=== PATIENT | male | born 1985 | race Two or more races ===

== ENCOUNTER 2018-04-21 13:44 | Emergency (ER) | payer SELFPAY ==
--- NOTE | 2018-04-21 14:23 | CT ---
CT CERVICAL SPINE: Date: 04/21/18 Multiple axial tomograms obtained through cervical spine with multiplanar reconstruction. INDICATION: Level II trauma. Fell from second story balcony. FINDINGS: The cervical vertebra maintain normal height and alignment. Disc spaces are preserved. There is no ev idence of cervical spine fracture identified. IMPRESSION: No evidence of cervical spine fracture. POS: [facility]
--- NOTE | 2018-04-21 14:30 | RAD ---
PORTABLE CHEST: Date: 04/21/18 HISTORY: Trauma with injury to chest. FINDINGS: Lungs appear clear. No pneumothorax or infiltrate. Heart and mediastinum unremarkable. Bony structure s appear intact. IMPRESSION: No acute findings. POS: [facility]
--- NOTE | 2018-04-21 14:31 | CT ---
CT HEAD WITHOUT CONTRAST: Date: 04/21/18 Multiple axial tomograms obtained through head without IV enhancement. INDICATION: Level II trauma. Fell from second story balcony. FINDINGS: Ventricles have normal size and position. No evidence of intracranial hemorrhage or edema. No evidenc e of contusion. Sinuses are well aerated. IMPRESSION: No acute abnormality identified. POS: [facility]
--- NOTE | 2018-04-21 14:35 | CT ---
CT FACIAL BONES: Date: 04/21/18 Multiple axial tomograms obtained through facial bones with multiplanar reconstruction. INDICATION: Level II trauma. Fell from second story balcony with injury to face. FINDINGS: No definite nasal bone fracture identified. The orbits are intact. There is mucosal edema surrounding both maxillary sinuses and seen throughout the ethmoid and maxillary sinuses which may represent chr onic mucosal disease. The greg papyracea appear intact. The maxillary sinuses appear intact. Zygoma appear intact. The maxilla appears intact. Mandible appears intact. IMPRESSION: Diffuse mucosal edema involving the paranasal sinuses may be chronic. No evidence of acute facial bon e fracture identified. There is soft tissue swelling at the base of the nose on the right and right c heek region medially. POS: [facility]
== END 2018-04-21 14:40 | disposition home or self-care (01) ==
LOC: ERS 13:44
DX: S00.83XA Contusion of other part of head, initial encounter (principal); S80.211A Abrasion, right knee, initial encounter; W17.89XA Other fall from one level to another, initial encounter
CPT/HCPCS: 70450; 70486; 71045; 72125; G0390

== ENCOUNTER 2021-01-26 22:44 | Emergency (ER) | payer SELFPAY | END 2021-01-27 00:42 | disposition home or self-care (01) | LOC: ERS 22:44 | DX: F41.9 Anxiety disorder, unspecified (principal) | CPT/HCPCS: 36416; 71045; 93005 ==